=== PATIENT | male | born 1945 | race Caucasian/White ===

== ENCOUNTER 2019-05-29 09:44 | Emergency (ER) | payer MEDICARE, SELFPAY ==
[2019-05-29 09:46] VITALS: BP 142/105; PULSE 52; RESP 17; TEMP 36.4; O2SAT 93; BMI 41.5
--- NOTE | 2019-05-29 09:46 | ED.RN ---
NO OLD EKG
--- NOTE | 2019-05-29 09:49 | EKG12_ITS ---
Test Reason : CP Blood Pressure : / mmHG Vent. Rate : 052 BPM Atrial Rate : 052 BPM P-R Int : 206 ms QRS Dur : 084 ms QT Int : 476 ms P-R-T Axes : 085 006 018 degrees QTc Int : 442 ms Sinus bradycardia Otherwise normal ECG Confirmed by NINA GREENFIELD ([id number]), food editor CASSANDRA TAYLOR ([id number]) on 06/01/2019 2:03:01 PM Referred By: CARITO Confirmed By:NINA GREENFIELD
--- NOTE | 2019-05-29 09:49 | RAD_ITS ---
STUDY: X-RAY CHEST REASON FOR EXAM: Male, 74 years old. Chest pain this morning TECHNIQUE: Single AP portable view of the chest. COMPARISON: None. FINDINGS: Lungs underexpanded. Interstitial markings are mildly prominent. There is no demonstrated pleural abnormality. There is mild cardiac enlargement. Normal mediastinum and raf. Normal visualized pulmonary arteries. Normal visualized aortic arch and descending thoracic aorta. There are diffuse degenerative changes of the visualized thoracic spine. The visualized cervical spine fusion. Normal visualized ribs, clavicles, and shoulders. There is no demonstrated abnormality of the visualized soft tissue structures of the upper abdomen. RAD/Chest 1 View (Portable) IMPRESSION: Underexpansion of lungs atelectasis cannot exclude mild edema. Electronically Signed: Bree Nair MD at 11:16 EST Tel , Service support ,
[2019-05-29 10:02] LABS: Absolute Lymphocyte Count 1.71 X10^3/uL (0.83-4.51); Absolute Neutrophil Count 6.3 X10^3/uL (2.0-7.7); Basophil# 0.05 X10^3/uL; Basophil% 0.6 % (0-1); Eosinophil# 0.14 X10^3/uL; Eosinophils% 1.5 % (0-5); Hematocrit 41.7 % (40-54); Hemoglobin 13.2 g/dL (13.0-16.5); Lymphocyte # 1.71 X10^3/ul (4.0); Lymphocyte % 18.8 % (19-41); Mean Corp Hgb Conc 31.7 g/dL (32-36); Mean Corpuscular Hgb 29.2 pg (27.0-32.0); Mean Corpuscular Volume 92.3 fL (80-94); Mean Platelet Vol. 10.2 fl (6.2-12.0); Monocyte# 0.71 X10^3/uL; Monocyte% 7.8 % (0-10); NRBC Flagged by Analyzer 0 % (0-5); Neutrophil # 6.34 X10^3/uL (2.7-7.7); Neutrophil % 69.8 % (47-70); Platelet Count 194 K/mm3 (150-450); RBC Distribution Width CV 15.1 % (11.6-14.6); Red Blood Count 4.52 M/mm3 (4.6-6.2); White Blood Count 9.1 K/mm3 (4.4-11.0)
[2019-05-29 10:05] VITALS: O2SAT 93
[2019-05-29 10:17] LABS: Anion Gap 4 (5-15); BUN 24 mg/dL (7-18); BUN/Creat Ratio 24.3 RATIO (10-20); Calcium,Total 8.6 mg/dL (8.5-10.1); Chloride 113 mmol/L (98-107); Creatinine, Serum 0.99 mg/dL (0.70-1.30); EST Glomerular Filtration Rate 79 mL/min (>60); Est Glom Filt Rate - Afr Amer 95 mL/min (>60); Estimated Creatinine Clearance 61.41 ml/min; Glucose 128 mg/dL (74-106); Potassium 3.9 mmol/L (3.5-5.1); Sodium Level 145 mmol/L (136-145)
--- NOTE | 2019-05-29 10:23 | EKG12_ITS ---
Test Reason : REPEAT Blood Pressure : / mmHG Vent. Rate : 050 BPM Atrial Rate : 050 BPM P-R Int : 184 ms QRS Dur : 106 ms QT Int : 382 ms P-R-T Axes : -08 008 016 degrees QTc Int : 348 ms Sinus bradycardia Nonspecific T wave abnormality Abnormal ECG Confirmed by NINA GREENFIELD ([id number]), purchasing expeditor CASSANDRA TAYLOR ([id number]) on 06/01/2019 2:03:18 PM Referred By: CARITO Confirmed By:NINA GREENFIELD
[2019-05-29 10:39] VITALS: BP 142/78; PULSE 51
[2019-05-29] MEDS: Nitroglycerin Oint 1 INCH PACKET TRANSDERM. (10:39)
[2019-05-29] MEDS: 0.9% Normal Saline 1,000 ML 150 ML IV (10:40)
[2019-05-29 10:56] VITALS: BP 117/74; PULSE 52; RESP 19; O2SAT 95
--- NOTE | 2019-05-29 12:09 | ED.VISSUMM ---
- ER Visit Summary Date of Service: 05/29/19 Chief Complaint: [] History of Present Illness: The patient is a 74 M [test pain urgency department complaint chest pain that started while at breakfast about half an hour prior to arrival in the emergency department. Patient states that he had left-sided chest pressure and discomfort and felt short of breath. Pain can radiate into his left arm. Patient had some mild blurred vision associated with it. Patient tells me that he has a history of coronary artery disease and had a heart attack 2 months ago. Patient was scheduled to be seen at [facility] for evaluation for possible CABG. His employee benefits insurance agent is at [facility] however they did not feel that they would be able to do the potential surgery at that facility. Patient on arrival to the emergency department states his chest pains resolved. Initially EMS felt that patient had a STEMI on EKG but they could not transmit to our emergency department.] Physical Examination: [HEENT-PERRLA, EOMI. Cranial nerves II through XII grossly intact. TMs clear. Mucous membranes moist. No adenopathy. Cardiovascular-regular rate and rhythm without murmur or ectopy Lungs-clear to auscultation, chest wall stable without crepitus or subcu emphysema Abdomen-normoactive bowel sounds, soft, nontender, no rebound or rigidity, no peritoneal signs. Extremities-intact ?4, normal range of motion, normal pulses, atraumatic] Test Results: [EKG obtained arrival shows sinus rhythm with a ventricular rate of 52 bpm with no acute ST segment changes. CBC with differential obtained showed a white count 9.1, hemoglobin 13, hematocrit 42, platelets 194. Chemistries unremarkable. Troponin less than 0.015. Chest x-ray showed nothing acute. Repeat EKG obtained showed a sinus rhythm with a ventricular rate of 50 bpm again essentially unchanged from the first 1.] Emergency Department Course and Treatment: [Patient received aspirin via EMS. Patient had an inch of Nitropaste placed to the anterior chest wall.] Case was discussed with [facility] as patient is to be evaluated there for potential CABG next month. I spoke with Dr. Mast who accepted transfer of patient. Treatment Plan: [Transfer to [facility]] Disposition: [Transfer Impression: [Acute coronary syndrome] This note was generated with [employer] dictation software. It may contain incorrect words, spelling, and punctuation that were not noted in review of the chart prior to signing ED Disposition - Plan for ED Patient: Referrals: MAYRA LEBLANC [Other]
[2019-05-29 13:34] VITALS: BP 124/47; PULSE 58; RESP 20; O2SAT 94
[2019-05-29 13:35] VITALS: BP 124/47; PULSE 55; RESP 12; TEMP 36.4; O2SAT 95
== END 2019-05-29 14:22 | disposition short-term general hospital (02) ==
PROVIDERS: Emergency Provider Emergency Medicine
DX: I24.9 Acute ischemic heart disease, unspecified (principal); I25.10 Atherosclerotic heart disease of native coronary artery without angina pectoris; I25.2 Old myocardial infarction
CPT/HCPCS: 71045; 80048; 84484; 85025; 93005; 96360; 96361; 99285; J7030; A4216